=== PATIENT | female | born 1985 | race Asian ===

== ENCOUNTER 2017-06-27 09:36 | Emergency (ER) | payer OTHER ==
[~2017-06-27] VITALS: Ht 167.6 cm; Wt 54.4 kg
[2017-06-27 09:38] VITALS: BP_SYST 100
[2017-06-27 11:30] VITALS: BP_SYST 106
== END 2017-06-27 11:30 | disposition home or self-care (01) ==
LOC: SED 09:36
DX: O26.891 Other specified pregnancy related conditions, first trimester (principal); Z3A.01 Less than 8 weeks gestation of pregnancy; Z86.19 Personal history of other infectious and parasitic diseases
CPT/HCPCS: 36415; 76801; 76817; 84702-TC; 99285

== ENCOUNTER 2017-08-12 07:46 | Emergency (ER) | payer MEDICAID, OTHER ==
[~2017-08-12] VITALS: Ht 167.6 cm; Wt 59.0 kg
[2017-08-12 07:50] VITALS: BP_SYST 121
[2017-08-12 08:29] LABS: BASOPHILS # (AUTO) 0.1 K/uL (0.0-0.2); EOSINOPHILS # (AUTO) 0.1 K/uL (0.0-0.4); MEAN CORPUSCULAR HEMOGLOBIN 29 pg (27-31); MEAN CORPUSCULAR HGB CONC 34 % (32-36)
[2017-08-12 08:38] LABS: BASOPHILS % (AUTO) 1.3 % (0.0-2.0); EOSINOPHILS % (AUTO) 1.7 % (0.0-4.0); HEMATOCRIT 37.7 % (36-48); HEMOGLOBIN 12.9 g/dL (12.0-16.0); LYMPHOCYTES % (AUTO) 24.1 % (20.5-51.5); MEAN CORPUSCULAR VOLUME 84 fL (79.0-98.0); MONOCYTES % (AUTO) 6.5 % (1.7-9.3); NEUTROPHILS % (AUTO) 66.4 % (40.0-70.0); PLATELET COUNT (AUTO) 163 K/uL (130-430); RED CELL DISTRIBUTION WIDTH 13.4 % (9.0-15.0); WHITE BLOOD COUNT (AUTO) 6.6 K/uL (4.8-10.8)
[2017-08-12 08:39] LABS: LYMPHOCYTES # (AUTO) 1.6 K/uL (1.0-5.5); MONOCYTES # (AUTO) 0.4 K/uL (0.0-1.0); NEUTROPHILS # (AUTO) 4.4 K/uL (1.8-7.7)
[2017-08-12 08:58] LABS: BILIRUBIN,URINE NEGATIVE (NEGATIVE); BLOOD, URINE 3+ (NEGATIVE); CLARITY/URINE SL HAZY (CLEAR); COLOR,URINE YELLOW (YELLOW); GLUCOSE,URINE NEGATIVE (NEGATIVE); KETONES,URINE NEGATIVE (NEGATIVE); LEUKOCYTE ESTERASE ,URINE NEGATIVE (NEGATIVE); NITRITE, URINE NEGATIVE (NEGATIVE); PH,URINE 5.5 (5.0-8.0); PROTEIN URINE NEGATIVE (NEGATIVE); UROBILINOGEN,URINE 0.2 (0.2-1.0)
[2017-08-12 09:02] LABS: CALCIUM 8.1 mg/dL (8.4-11.0); CREATININE 0.52 mg/dL (0.55-1.30); POTASSIUM 3.3 mmol/L (3.5-5.1)
[2017-08-12 09:17] LABS: BACTERIA,URINE FEW /HPF (None Seen); RBC,URINE 20-50 /HPF (0-3); WBC,URINE 0-3 /HPF (0-3)
[2017-08-12 09:18] LABS: PROTHROMBIN TIME 10.1 SECS (9.5-12.5)
[2017-08-12 09:37] LABS: ALBUMIN 3.5 g/dL (3.4-4.8); TOTAL BILIRUBIN 0.5 mg/dL (0.0-1.0)
[2017-08-12 10:07] VITALS: BP_SYST 125
== END 2017-08-12 10:07 | disposition home or self-care (01) ==
LOC: SED 07:46
DX: O02.1 Missed abortion (principal); Z3A.09 9 weeks gestation of pregnancy; Z86.19 Personal history of other infectious and parasitic diseases
CPT/HCPCS: 36415; 76801; 76817; 80053; 81000-TC; 81025; 84702-TC; 85025; 85610-TC; 85730-TC; 86886; 86900; 86901; 99285

== ENCOUNTER 2017-08-13 12:22 | Observation (INO) | payer MEDICAID ==
[~2017-08-13] VITALS: Ht 167.6 cm; Wt 59.0 kg
[2017-08-13 12:22] VITALS: BP_SYST 135
[2017-08-13] MEDS: NACL 0.9% 1,000 ML IV ONE (12:49)
[2017-08-13] MEDS: DIPHENHYDRAMINE INJ 50 MG/ML VIAL IVP ONE (12:49)
[2017-08-13] MEDS: MORPHINE 4 MG/ML INJ. SYRINGE IVP ONE (12:50)
[2017-08-13 12:53] LABS: BASOPHILS # (AUTO) 0.1 K/uL (0.0-0.2); BASOPHILS % (AUTO) 1.5 % (0.0-2.0); EOSINOPHILS % (AUTO) 0.4 % (0.0-4.0); HEMATOCRIT 40.3 % (36-48); HEMOGLOBIN 13.5 g/dL (12.0-16.0); LYMPHOCYTES # (AUTO) 1.3 K/uL (1.0-5.5); LYMPHOCYTES % (AUTO) 14.6 % (20.5-51.5); MEAN CORPUSCULAR HEMOGLOBIN 28 pg (27-31); MEAN CORPUSCULAR HGB CONC 34 % (32-36); MEAN CORPUSCULAR VOLUME 84 fL (79.0-98.0); MONOCYTES # (AUTO) 0.5 K/uL (0.0-1.0); MONOCYTES % (AUTO) 6.1 % (1.7-9.3); NEUTROPHILS % (AUTO) 77.4 % (40.0-70.0); PLATELET COUNT (AUTO) 200 K/uL (130-430); RED CELL DISTRIBUTION WIDTH 13.2 % (9.0-15.0); WHITE BLOOD COUNT (AUTO) 8.9 K/uL (4.8-10.8)
[2017-08-13 13:05] LABS: CALCIUM 8.2 mg/dL (8.4-11.0); CREATININE 0.58 mg/dL (0.55-1.30); POTASSIUM 3.4 mmol/L (3.5-5.1)
[2017-08-13] MEDS: HYDROmorphone 1 MG INJ. 1 MG/ML AMPUL IVP ONE (13:17)
[2017-08-13 13:30] LABS: ALBUMIN 3.6 g/dL (3.4-4.8); TOTAL BILIRUBIN 0.4 mg/dL (0.0-1.0)
[2017-08-13 14:26] LABS: PROTHROMBIN TIME 10.4 SECS (9.5-12.5)
[2017-08-13] MEDS: cefTRIAXone 1 GM IVPB PREMIX 50 ML IV ONE (15:11)
[2017-08-13 15:14] LABS: BILIRUBIN,URINE NEGATIVE (NEGATIVE); BLOOD, URINE 3+ (NEGATIVE); CLARITY/URINE CLOUDY (CLEAR); COLOR,URINE RED (YELLOW); GLUCOSE,URINE NEGATIVE (NEGATIVE); KETONES,URINE 2+ (NEGATIVE); LEUKOCYTE ESTERASE ,URINE TRACE (NEGATIVE); NITRITE, URINE NEGATIVE (NEGATIVE); PROTEIN URINE 1+ (NEGATIVE)
[2017-08-13 15:33] LABS: BACTERIA,URINE RARE /HPF (None Seen); RBC,URINE >100 /HPF (0-3)
[2017-08-13 15:39] VITALS: BP_SYST 96
[2017-08-13] MEDS ORDERED: LR 1,000 ML IV SCH ×2 (18:40→18:45)
[2017-08-13] MEDS ORDERED: HYDROmorphone 2 MG/ML VIAL IVP PRN ×2 (18:45)
[2017-08-13] MEDS ORDERED: MEPERIDINE HCL/PF 25 MG/ML DISP.SYRIN IVP PRN (18:45)
[2017-08-13] MEDS ORDERED: HYDROcodone/ACETAMIN 5-325 MG TAB (NORCO/ VICODIN) PO PRN ×2 (18:45)
[2017-08-13] MEDS ORDERED: MEPERIDINE HCL/PF 50 MG/ML AMP IVP PRN (18:45)
[2017-08-13] MEDS ORDERED: HYDROmorphone 1 MG INJ. 1 MG/ML AMPUL IVP PRN (18:45)
[2017-08-13 21:50] VITALS: BP_SYST 97
[2017-08-13 22:11] VITALS: BP_SYST 94
[2017-08-13 22:15] VITALS: BP_SYST 97
[2017-08-13] MEDS ORDERED: DEXAMETHASONE SOD PHOSPHATE 4 MG/ML VIAL IVP ONE (22:19)
[2017-08-13] MEDS ORDERED: LR 1,000 ML IV.SOLN IV ONE (22:19)
[2017-08-13] MEDS ORDERED: KETOROLAC TROMETHAMINE 30 MG VIAL IVP ONE (22:19)
[2017-08-13] MEDS ORDERED: fentaNYL CITRATE/PF 100 MCG/2 ML AMP IVP ONE (22:19)
[2017-08-13] MEDS ORDERED: ROCURONIUM BROMIDE 10 MG/ML (ZEMURON) IV ONE (22:19)
[2017-08-13] MEDS ORDERED: OXYTOCIN/NORMAL SALINE 20 UNITS/1,000 ML BAG IV ONE (22:19)
[2017-08-13] MEDS ORDERED: ONDANSETRON HCL 4 MG/2 ML VIAL IVP ONE (22:19)
[2017-08-13] MEDS ORDERED: SEVOFLURANE 15 MIN GAS INH ONE (22:19)
[2017-08-13] MEDS ORDERED: PROPOFOL 200MG/ 20ML VIAL (DIPRIVAN) IV ONE (22:19)
== END 2017-08-13 22:20 | disposition home or self-care (01) ==
LOC: SED 12:22 → SDS 13:54 → SMU 15:15
PROVIDERS: ADMIT Obstetrics & Gynecology; ATTEND Obstetrics & Gynecology
DX: O03.4 Incomplete spontaneous abortion without complication (principal); Z3A.12 12 weeks gestation of pregnancy
CPT/HCPCS: 36415; 74000-TC; 76805-TC; 80053; 81000-TC; 81025; 83690-TC; 84702-TC; 85025; 85610-TC; 86900; 86901; 87081; 87086; 88305; 96361; 96365; 96375; 99285; G0378; J0696; J1100; J1170; J1200; J1885; J2270; J2405; J2590; J2704; J3010; J7030; J7120